=== PATIENT | female | born 1990 | race Caucasian/White ===

== ENCOUNTER 2017-07-24 20:25 | Emergency (ER) | payer SELFPAY ==
[2017-07-24] MEDS ORDERED: DICYCLOMINE HCL 10 MG CAP ONE (20:48)
[2017-07-24] MEDS ORDERED: ONDANSETRON 4 MG/2 ML VIAL ONE (20:48)
[2017-07-24] MEDS ORDERED: NA CHLORIDE 0.9% 1,000 ML ONE ×2 (20:48→22:39)
[2017-07-24] MEDS ORDERED: FAMOTIDINE 20 MG/2 ML VIAL IV ONE (20:49)
[2017-07-24 21:04] LABS: Absolute Lymphocytes (CBC) 1.4 K/uL (0.7-4.9); Absolute Monocytes 0.5 K/uL (0.1-1.3); Absolute Neutrophil 8.6 K/uL (1.8-8.0); Basophils % 0.2 % (0-1.3); Eosinophils % 0.3 % (0-4.4); Hematocrit 44.4 % (36.0-45.0); Lymphocytes % 13.5 % (15.3-44.8); MCV 83.7 fL (80-100); Monocytes % 4.8 % (3.3-12.3); RBC Red Blood Cell Count 5.31 M/uL (3.86-4.86)
[2017-07-24 21:12] LABS: Glucose Level 108 mg/dL (65-120); Lipase 28 U/L (22-51)
[2017-07-24 21:18] LABS: Alkaline Phosphatase 51 IU/L (42-121); BUN Blood Urea Nitrogen 14 mg/dL (6-20); Bilirubin Direct 0.3 mg/dL (0-0.2); Bilirubin Total 0.9 mg/dL (0.3-1.2); Protein, Total 8.9 g/dL (6.0-8.3)
[2017-07-24 21:22] LABS: ALT/SGPT 29 IU/L (10-60); AST/SGOT 30 IU/L (10-42); Amylase Level 68 U/L (28-100); Bicarbonate 23 mEq/L (21-31); Potassium 4.3 mEq/L (3.6-5.0); Sodium Level 137 mEq/L (135-145)
--- NOTE | 2017-07-24 23:06 | ER ---
Nurse's Notes [facility] Name: Cari Melara Age: 27 yrs Sex: Female : 1990 Arrival Date: 07/24/2017 Time: 20:25 Bed 18 Private MD: Diagnosis: Nausea and vomiting;Diarrhea, unspecified Presentation: 07/24 20:26 Presenting complaint: EMS states: SHE'S BEEN IN REHAB FOR ABOUT 30 DAYS AND CALLED US bp FOR NAUSEA AND VOMITING FOR 3 HOURS. Transition of care: patient was received from another setting of care (rehabilitation facility). Onset of symptoms was July 24, 2017 at 17:00. Risk Assessment: Do you want to hurt yourself or someone else? Patient reports no desire to harm self or others. Initial Sepsis Screen: Does the patient meet any 2 criteria? No. Patient's initial sepsis screen is negative. Does the patient have a suspected source of infection? No. Patient's initial sepsis screen is negative. Care prior to arrival: None. 20:26 Method Of Arrival: EMS: [facility] bp 20:26 Acuity: LENORA 3 bp Triage Assessment: 20:31 General: Appears in no apparent distress. comfortable, slender, Behavior is bp cooperative, appropriate for age, anxious. Pain: Complains of pain in abdomen. EENT: No signs and/or symptoms were reported regarding the EENT system. Neuro: Level of Consciousness is awake, alert, obeys commands, Oriented to person, place, time, situation, Appropriate for age. Cardiovascular: No deficits noted. Respiratory: Airway is patent Respiratory effort is even, unlabored, Respiratory pattern is regular, symmetrical. GI: Reports lower abdominal pain, bloating, diarrhea, nausea, vomiting. : No signs and/or symptoms were reported regarding the genitourinary system. Derm: No deficits noted. Musculoskeletal: Circulation, motion, and sensation intact. Range of motion: intact in all extremities. 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 - Social history:: Smoking status: Patient uses tobacco products, denies chronic smoking, but will smoke occasionally. - Ebola Screening: : Patient negative for fever greater than or equal to 101.5 degrees Fahrenheit, and additional compatible Ebola Virus Disease symptoms Patient denies exposure to infectious person Patient denies travel to an Ebola-affected area in the 21 days before illness onset No symptoms or risks identified at this time. Screenin:34 Abuse screen: Denies threats or abuse. Denies injuries from another. Nutritional bp screening: No deficits noted. Tuberculosis screening: No symptoms or risk factors identified. Fall Risk None identified. Assessment: 20:34 General: SEE TRIAGE NOTE. bp 22:55 Reassessment: PO CHALLENGE SUCCESSFUL, IVF INFUSING. PT STATES RELIEF OF S/S. bp 23:24 Reassessment: D/C ON HOLD FOR IVF INFUSION. bp 23:43 Reassessment: PT D/C HOME AMBULATORY, DX WITH UNSPECIFIED NAUSEA AND VOMITING. bp Vital Signs: 20:31 BP 88 / 75; Pulse 102; Resp 20; Temp 98.9; Pulse Ox 99% ; Weight 51.26 kg; Height 5 ft. bp 2 in. (157.48 cm); 22:00 BP 101 / 60; Pulse 92; Resp 16; Pulse Ox 100% ; bp 22:55 BP 115 / 87; Pulse 78; Resp 16; Pulse Ox 100% ; bp 20:31 Body Mass Index 20.67 (51.26 kg, 157.48 cm) bp ED Course: 20:25 Patient arrived in ED. bp 20:25 Ashok Joseph PA is PHCP. cp 20:26 Kenny Lopez MD is Attending Physician. cp 20:30 Triage completed. bp 20:31 Arm band placed on. bp 20:34 Patient has correct armband on for positive identification. Bed in low position. Call bp light in reach. Side rails up X2. 20:39 Sudhir Rothman, FILIBERTO is Primary Nurse. bp 20:47 Initial lab(s) drawn, by me, sent to lab. Inserted saline lock: 22 gauge in right hand, cc using aseptic technique. Blood collected. 23:44 No provider procedures requiring assistance completed. IV discontinued, intact, bp bleeding controlled, No redness/swelling at site. Pressure dressing applied. Administered Medications: 20:52 Drug: Zofran 4 mg Route: IVP; Site: right hand; bp 23:42 Follow up: Response: Nausea is decreased bp 20:52 Drug: Pepcid 20 mg Route: IVP; Site: right hand; bp 23:42 Follow up: Response: Marked relief of symptoms bp 20:52 Drug: Bentyl 20 mg Route: PO; bp 23:43 Follow up: Response: Marked relief of symptoms bp 20:53 Drug: NS 0.9% 1000 ml Route: IV; Rate: 1 bolus; Site: right hand; bp 23:42 Follow up: IV Status: Completed infusion bp 22:45 Drug: NS 0.9% 1000 ml Route: IV; Rate: 1 bolus; Site: right hand; bp 23:43 Follow up: IV Status: Completed infusion; IV Intake: 1000ml bp Intake: 23:43 IV: 1000ml; Total: 1000ml. bp Outcome: 23:06 Discharge ordered by MD. cp 23:44 Discharged to home ambulatory. bp 23:44 Condition: stable 23:44 Discharge instructions given to patient, Instructed on discharge instructions, follow up and referral plans. medication usage, Demonstrated understanding of instructions, follow-up care, medications, Prescriptions given X 2. 23:45 Patient left the ED. bp Signatures: Emelia Li Corey, PA PA cp Sudhir Rothman, RN RN bp
--- NOTE | 2017-07-24 23:06 | EDPHYS ---
Physician Documentation [facility] Name: Cari Melara Age: 27 yrs Sex: Female : 1990 Arrival Date: 07/24/2017 Time: 20:25 Bed 18 Private MD: ED Physician Kenny Lopez HPI: 07/24 20:34 This 27 yrs old Female presents to ER via EMS with complaints of cp Nausea/Vomiting. 20:34 The patient presents to the emergency department with nausea, with "dry heaves", cp vomiting, that is continuous, diarrhea, that is continuous. Onset: The symptoms/episode began/occurred 3 hour(s) ago. 20:34 Possible causes: unknown. cp 20:34 Associated signs and symptoms: Pertinent positives: abdominal pain, dysuria, fever, cp Pertinent negatives: constipation, fever, GI bleeding. Severity of symptoms: in the emergency department the symptoms are unchanged despite home interventions. 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 - Social history:: Smoking status: Patient uses tobacco products, denies chronic smoking, but will smoke occasionally. - Ebola Screening: : Patient negative for fever greater than or equal to 101.5 degrees Fahrenheit, and additional compatible Ebola Virus Disease symptoms Patient denies exposure to infectious person Patient denies travel to an Ebola-affected area in the 21 days before illness onset No symptoms or risks identified at this time. ROS: 20:40 Constitutional: Positive for poor PO intake, Negative for body aches, chills, fever. cp 20:40 Eyes: Negative for injury, pain, redness, and discharge. cp Exam: 20:45 Head/Face: Normocephalic, atraumatic. Eyes: Pupils equal round and reactive to light, cp extra-ocular motions intact. Lids and lashes normal. Conjunctiva and sclera are non-icteric and not injected. Cornea within normal limits. Periorbital areas with no swelling, redness, or edema. 20:45 Constitutional: The patient appears in no acute distress, alert, awake, non-toxic, well developed, well nourished, uncomfortable. 20:45 ENT: External ear(s): are unremarkable, Nose: is normal, Mouth: Lips: moist, Oral cp mucosa: pink and intact, moist, Posterior pharynx: is normal, airway is patent, no erythema, no exudate. 20:45 Neck: ROM/movement: is normal, is supple, without pain, no range of motions limitations, no meningismus, no nuchal rigidity. 20:45 Chest/axilla: Inspection: normal, Palpation: is normal, no crepitus, no tenderness. 20:45 Cardiovascular: Rate: tachycardic, Rhythm: regular, Edema: is not appreciated, JVD: is not appreciated. 20:45 Respiratory: the patient does not display signs of respiratory distress, Respirations: normal, no use of accessory muscles, no retractions, no splinting, no tachypnea, labored breathing, is not present, Breath sounds: are clear throughout, no decreased breath sounds, no stridor, no wheezing. 20:45 Abdomen/GI: Inspection: abdomen appears normal, Bowel sounds: active, all quadrants, Palpation: soft, in all quadrants, mild abdominal tenderness, in all quadrants, rebound tenderness, is not appreciated, voluntary guarding, is not appreciated, involuntary guarding, is not appreciated. 20:45 Back: pain, is absent, ROM is normal. 20:45 Skin: cellulitis, is not appreciated, no rash present. 20:45 Neuro: Orientation: to person, place \\T\\ time. Mentation: lucid, able to follow commands, Cerebellar function: is grossly normal, Motor: moves all fours, strength is normal, Sensation: no obvious gross deficits, Gait: is steady. Vital Signs: 20:31 BP 88 / 75; Pulse 102; Resp 20; Temp 98.9; Pulse Ox 99% ; Weight 51.26 kg; Height 5 ft. bp 2 in. (157.48 cm); 22:00 BP 101 / 60; Pulse 92; Resp 16; Pulse Ox 100% ; bp 22:55 BP 115 / 87; Pulse 78; Resp 16; Pulse Ox 100% ; bp 20:31 Body Mass Index 20.67 (51.26 kg, 157.48 cm) bp MDM: 20:26 Patient medically screened. cp 21:00 Differential diagnosis: gastritis, cholecystitis, pancreatitis, appendicitis, cp diverticulitis, viral gastroenteritis, gastroenteritis. 23:05 Data reviewed: vital signs, nurses notes, lab test result(s), and as a result, I will cp discharge patient. 23:05 Counseling: I had a detailed discussion with the patient and/or guardian regarding: the cp historical points, exam findings, and any diagnostic results supporting the discharge/admit diagnosis, lab results, to return to the emergency department if symptoms worsen or persist or if there are any questions or concerns that arise at home. 23:05 Response to treatment: the patient's symptoms have markedly improved after treatment, cp VSS. Nausea markedly improved and vomiting resolved. Will discharge for continued monitoring. 07/24 20:35 Order name: Amylase, Serum cp 07/24 20:35 Order name: Basic Metabolic Panel; Complete Time: 21:33 cp 07/24 22:25 Interpretation: Reviewed. 07/24 20:35 Order name: CBC with Diff; Complete Time: 21:33 cp 07/24 21:33 Interpretation: Normal except: RBC 5.31; ТАТЬЯНА% 81.2; LYM% 13.5; NEUT A 8.6. 07/24 20:35 Order name: Creatinine for Radiology; Complete Time: 21:33 cp 07/24 20:35 Order name: Hepatic Function; Complete Time: 21:33 cp 07/24 22:24 Interpretation: Normal except: BILID 0.3; TP 8.9; GLOB 3.9. cp 07/24 20:35 Order name: Lipase; Complete Time: 21:33 cp 07/24 20:36 Order name: Amylase Level; Complete Time: 21:33 EDMS 07/24 20:39 Order name: Test, Serum; Complete Time: 21:33 cc 07/24 20:35 Order name: IV Saline Lock; Complete Time: 20:52 cp 07/24 20:35 Order name: Labs collected and sent; Complete Time: 20:52 cp 07/24 22:25 Order name: PO challenge; Complete Time: 22:30 cp Administered Medications: 20:52 Drug: Zofran 4 mg Route: IVP; Site: right hand; bp 23:42 Follow up: Response: Nausea is decreased bp 20:52 Drug: Pepcid 20 mg Route: IVP; Site: right hand; bp 23:42 Follow up: Response: Marked relief of symptoms bp 20:52 Drug: Bentyl 20 mg Route: PO; bp 23:43 Follow up: Response: Marked relief of symptoms bp 20:53 Drug: NS 0.9% 1000 ml Route: IV; Rate: 1 bolus; Site: right hand; bp 23:42 Follow up: IV Status: Completed infusion bp 22:45 Drug: NS 0.9% 1000 ml Route: IV; Rate: 1 bolus; Site: right hand; bp 23:43 Follow up: IV Status: Completed infusion; IV Intake: 1000ml bp Disposition: 07/25 01:22 Co-signature as Attending Physician, Kenny Lopez MD. [email or web address] Disposition: 07/24/17 23:06 Discharged to Home. Impression: Nausea and vomiting, Diarrhea, unspecified. - Condition is Stable. - Discharge Instructions: Food Choices to Help Relieve Diarrhea, Adult, Diarrhea, Nausea and Vomiting. - Prescriptions for Bentyl 20 mg Oral Tablet - take 1 tablet by ORAL route every 6 hours As needed; 20 tablet. Zofran 4 mg Oral Tablet - take 1 tablet by ORAL route every 12 hours As needed; 20 tablet. - Medication Reconciliation Form, Thank You Letter, Antibiotic Education, Prescription Opioid Use form. - Follow up: Private Physician; When: 1 - 2 days; Reason: Recheck today's complaints. - Problem is new. - Symptoms have improved. Signatures: Dispatcher [employer] EDMS Kenny Lopez MD MD pkl Ashok Joseph PA PA cp Peltier, Brian, RN RN bp Corrections: (The following items were deleted from the chart) 07/24 23:45 23:06 07/24/2017 23:06 Discharged to Home. Impression: Nausea and vomiting; Diarrhea, bp unspecified. Condition is Stable. Forms are Medication Reconciliation Form, Thank You Letter, Antibiotic Education, Prescription Opioid Use. Follow up: Private Physician; When: 1 - 2 days; Reason: Recheck today's complaints. Problem is new. Symptoms have improved. cp
== END 2017-07-24 23:45 | disposition home or self-care (01) ==
LOC: ER 20:25
DX: R11.2 Nausea with vomiting, unspecified (principal); R19.7 Diarrhea, unspecified
CPT/HCPCS: 36415; 80048; 80076; 82150; 83690; 84703; 85025; 96361; 96374; 96375; 99284; J2405; J7030